=== PATIENT | female | born 1985 | race Caucasian/White ===

== ENCOUNTER → 2019-06-08 09:45 | Outpatient (CLI) | payer MEDICAID, SELFPAY | PROVIDERS: PCP Family Medicine; Referring Provider Family Medicine; Visit Provider Obstetrics & Gynecology | DX: Z36.2 Encounter for other antenatal screening follow-up (principal); O28.3 Abnormal ultrasonic finding on antenatal screening of mother; Z53.9 Procedure and treatment not carried out, unspecified reason ==

== ENCOUNTER → 2019-06-15 08:53 | Outpatient (CLI) | payer MEDICAID, SELFPAY ==
--- NOTE | 2019-06-15 08:55 | DI.US.S_ITS ---
PROCEDURE: US OB FOLLOW UP INDICATIONS: Gross monitoring, echogenic focus within the stomach OUTSIDE/PRIOR DATING DATA: Last menstrual period (LMP): 11/24/18. LMP-based estimated date of delivery (WILLIE): 08/31/19. First dating scan (date and location): 02/12/19, at [facility]. Estimated date of delivery (WILLIE) from first dating scan: 08/31/19. TECHNIQUE: Real-time scanning was performed of the fetus, with image documentation and biometric measurements. COMPARISON: Outside Facility, RG, US OB DETAILED SGL FETUS, 04/09/2019, 13:03. Outside Facility, RG, US OB FIRST TRIMESTER, 02/16/2019, 11:02. Outside Facility, RG, US OB FIRST TRIMESTER, 02/02/2019, 10:45. FINDINGS: General: A single living intrauterine gestation is present. Presentation: Cephalic. Placenta: Placental position is posterior, yet without previa. Amniotic fluid index: 13.4 cm, normal range is 5-24 cm. heart rate: 132 beats per minute. Maternal cervical canal: Not examined biometrics: Biparietal diameter: 7.5 cm equals 30 weeks 1 day Head circumference: 26.9 cm equals 29 weeks 2 days Abdominal circumference: 24.3 cm equals 28 weeks 4 days Femur length: 5.6 cm equals 29 weeks 3 days Estimated gestational age from initial scan: 28 weeks 5 days Composite gestational age from present scan: 29 weeks 3 days Estimated weight and percentile: 1325 g, 49th percentile Measurement variability for biometric dating: +/- 7 days from 14 weeks to 15 weeks 6 days gestation, +/- 10 days from 16 weeks to 21 weeks 6 days gestation, +/- 2 weeks from 22 weeks to 27 weeks 6 days gestation, +/- 3 weeks for 28 weeks gestation or later. weight reference: 4500 g or EFW >90/95% is considered macrosomia or large for gestational age. EFW <10% is small for gestational age. EFW 5% or less is considered intra-uterine growth restriction. Other: The previously seen gastric echogenic focus is not seen. IMPRESSION: The previously seen gastric echogenic focus is no longer seen there Normal interval growth when compared to the prior ultrasound examination. Dictated by: Umair Mai M.D. on 06/15/2019 at 11:29 Approved by: Umair Mai M.D. on 06/15/2019 at 11:33
== END ==
PROVIDERS: PCP Family Medicine; Referring Provider Obstetrics & Gynecology; Visit Provider Obstetrics & Gynecology
DX: O28.3 Abnormal ultrasonic finding on antenatal screening of mother (principal); Z3A.29 29 weeks gestation of pregnancy
CPT/HCPCS: 76816

== ENCOUNTER 2019-06-15 09:50 | Outpatient (CLI) | payer MEDICAID, SELFPAY ==
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
== END 2019-06-15 10:28 | disposition home or self-care (01) ==
LOC: OB 16:02
PROVIDERS: PCP Family Medicine; Referring Provider Obstetrics & Gynecology; Visit Provider Obstetrics & Gynecology
DX: O26.23 Pregnancy care for patient with recurrent pregnancy loss, third trimester (principal); O21.8 Other vomiting complicating pregnancy; Z86.2 Personal history of diseases of the blood and blood-forming organs and certain disorders involving the immune mechanism; Z3A.29 29 weeks gestation of pregnancy; O28.3 Abnormal ultrasonic finding on antenatal screening of mother
CPT/HCPCS: 59025; 76816; G0378; G0379

== ENCOUNTER → 2019-06-25 09:16 | Outpatient (CLI) | payer MEDICAID, SELFPAY ==
[2019-06-25 11:23] LABS: Add Manual Diff / Slide Review NO; Basophils Absolute Auto 0 /uL (0-100); Basophils Percent Auto 0.2 % (0-2); Eosinophils Absolute Auto 200 /uL (0-450); Eosinophils Percent Auto 2.6 % (2-4); Hematocrit 34.7 % (36-46); Hemoglobin 11.7 g/dL (12.0-16.0); Lymphocytes Absolute Auto 2100 /uL (1100-4500); Lymphocytes Percent Auto 26.6 % (25-40); Mean Corpuscular HGB Conc 33.8 % (30-36); Monocytes Absolute Auto 400 /uL (0-900); Monocytes Percent Auto 5.1 % (3-14); Neutrophils Absolute Auto 5200 /uL (1500-7000); Neutrophils Percent Auto 65.5 % (50-75); Platelet Count 284 X10^3/uL (150-400); Red Blood Cell Count 4.19 X10^6/uL (4.0-5.2); Red Cell Distribution Width 13.3 % (11.6-14.8)
[2019-06-25 11:33] LABS: Creatinine Urine Random 19.5 mg/dL; Protein (Total) Urine Random 15 mg/dL (0-12); Protein Creatinine Ratio Urine 0.76 GRAM/24H
[2019-06-25 11:36] LABS: Alanine Aminotransferase 12 IU/L (<35); Aspartate Aminotransferase 20 IU/L (14-36); Estimated Glomerular Filt Rate > 60.0 mL/min (>60); GTT (PREG) 1 Hour PP 50gm Dose 125 mg/dL (76-139)
[2019-06-25 11:43] LABS: BUN Creatinine Ratio 5.1 (6-22); Blood Urea Nitrogen 2 mg/dL (7-17)
[2019-06-25 11:52] LABS: Free T4, Direct Thyroxine 1.09 ng/dL (0.78-2.19)
== END ==
PROVIDERS: PCP Family Medicine; Referring Provider Obstetrics & Gynecology; Visit Provider Obstetrics & Gynecology
DX: Z34.83 Encounter for supervision of other normal pregnancy, third trimester (principal); Z3A.30 30 weeks gestation of pregnancy
CPT/HCPCS: 36415; 82565; 82570; 82950; 84156; 84439; 84443; 84450; 84460; 84520; 84550; 85025

== ENCOUNTER 2019-06-25 09:32 | Outpatient (CLI) | payer MEDICAID, SELFPAY | END 2019-06-25 10:15 | disposition home or self-care (01) | LOC: LABOR 09:52 → OB 06-29 14:22 | PROVIDERS: PCP Family Medicine; Referring Provider Obstetrics & Gynecology; Visit Provider Obstetrics & Gynecology | DX: O21.9 Vomiting of pregnancy, unspecified (principal); O26.23 Pregnancy care for patient with recurrent pregnancy loss, third trimester; Z3A.30 30 weeks gestation of pregnancy | CPT/HCPCS: 36415; 59025; 82565; 82570; 82950; 84156; 84439; 84443; 84450; 84460; 84520; 84550; 85025; G0378; G0379 ==

== ENCOUNTER 2019-07-03 10:13 | Outpatient (CLI) | payer OTHER, SELFPAY ==
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
== END 2019-07-03 10:32 | disposition home or self-care (01) ==
LOC: LABOR 10:30 → OB 07-06 09:34
PROVIDERS: PCP Family Medicine; Referring Provider Obstetrics & Gynecology; Visit Provider Obstetrics & Gynecology
DX: O21.8 Other vomiting complicating pregnancy (principal); O26.23 Pregnancy care for patient with recurrent pregnancy loss, third trimester; Z87.59 Personal history of other complications of pregnancy, childbirth and the puerperium; Z3A.31 31 weeks gestation of pregnancy
CPT/HCPCS: 59025; G0378; G0379

== ENCOUNTER 2019-07-10 11:34 | Outpatient (CLI) | payer OTHER, MEDICAID, SELFPAY ==
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
== END 2019-07-10 12:49 | disposition home or self-care (01) ==
LOC: LABOR 12:04 → OB 07-13 15:08
PROVIDERS: PCP Family Medicine; Referring Provider Obstetrics & Gynecology; Visit Provider Obstetrics & Gynecology
DX: O14.93 Unspecified pre-eclampsia, third trimester (principal); O26.23 Pregnancy care for patient with recurrent pregnancy loss, third trimester; O21.9 Vomiting of pregnancy, unspecified; Z3A.32 32 weeks gestation of pregnancy
CPT/HCPCS: 59025; G0378; G0379

== ENCOUNTER 2019-07-13 10:00 | Outpatient (CLI) | payer OTHER, MEDICAID, SELFPAY | END 2019-07-13 10:12 | disposition home or self-care (01) | LOC: OB 15:09 | PROVIDERS: PCP Family Medicine; Referring Provider Obstetrics & Gynecology; Visit Provider Obstetrics & Gynecology | DX: O14.93 Unspecified pre-eclampsia, third trimester (principal); O26.23 Pregnancy care for patient with recurrent pregnancy loss, third trimester; O21.9 Vomiting of pregnancy, unspecified; Z3A.33 33 weeks gestation of pregnancy | CPT/HCPCS: 59025; G0378; G0379 ==

== ENCOUNTER 2019-07-17 11:11 | Outpatient (CLI) | payer OTHER, MEDICAID, SELFPAY ==
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
== END 2019-07-17 11:50 | disposition home or self-care (01) ==
LOC: LABOR 12:10 → OB 07-21 11:36
PROVIDERS: PCP Family Medicine; Referring Provider Obstetrics & Gynecology; Visit Provider Obstetrics & Gynecology
DX: O21.9 Vomiting of pregnancy, unspecified (principal); O26.23 Pregnancy care for patient with recurrent pregnancy loss, third trimester; Z3A.33 33 weeks gestation of pregnancy
CPT/HCPCS: 59025; G0378; G0379

== ENCOUNTER 2019-07-21 14:12 | Outpatient (CLI) | payer OTHER, MEDICAID, SELFPAY | END 2019-07-21 15:20 | disposition home or self-care (01) | LOC: LABOR 14:28 → OB 07-22 12:29 | PROVIDERS: PCP Family Medicine; Referring Provider Obstetrics & Gynecology; Visit Provider Obstetrics & Gynecology | DX: O47.1 False labor at or after 37 completed weeks of gestation (principal); O21.9 Vomiting of pregnancy, unspecified; O26.23 Pregnancy care for patient with recurrent pregnancy loss, third trimester; Z3A.34 34 weeks gestation of pregnancy | CPT/HCPCS: 59025; G0378; G0379 ==

== ENCOUNTER 2019-07-24 01:23 | Observation (INO) | payer OTHER, MEDICAID, SELFPAY ==
[2019-07-24 02:47] LABS: Appearance Urine UA CLEAR; Bacteria Urine None Seen; Bilirubin Urine UA NEGATIVE (NEGATIVE); Color Urine UA YELLOW; Glucose Urine UA NEGATIVE (Negative); Ketones Urine UA 1+ (NEGATIVE); Leukocyte Esterase Urine UA NEGATIVE (NEGATIVE); Nitrite Urine UA NEGATIVE (Negative); Occult Blood Urine UA NEGATIVE (Negative); Protein Urine UA NEGATIVE (Negative); RBC Urine None Seen (0-5/HPF); Specific Gravity Urine UA 1.015 (1.000-1.035); Urobilinogen Urine UA 0.2 E.U./dL (0.2); WBC Urine None Seen (0-5/HPF)
[2019-07-24 02:58] LABS: Culture Indicated Urine Cult Not Indicated; Urine Comments Microscopic Normal; pH Urine UA 6.5 (4.5-8.0)
[2019-07-24 03:06] LABS: Protein (Total) Urine Random 14 mg/dL (0-12)
--- NOTE | 2019-07-24 08:33 | PM.OBTRLD ---
Visit Information Visit Information Date of evaluation: 07/24/19 Primary OB Provider: Evelyn Reddy On-call OB Provider: Trista Juarez Reason for Evaluation: Yes non-stress test non-stress test reason: decreased movement, Yes pre-term labor and Yes other Comments/Additional reasons for admission: Patient was seeing spots in front of her eyes Vital Signs Vital Signs: Blood pressure 114/70, pulse 76, PFSH Social History marital status: household members: spouse and children pets and animals: Yes (Dog) special santa needs: No Smoking Status: Former smoker Tobacco: How many years used: 2 second hand exposure: No alcohol intake: former substance use type: does not use Objective Labs Labs: Laboratory Results - last 24 hr 07/24/19 07/24/19 02:45 02:45 Urine Color Yellow Urine Appearance Clear Urine pH 6.5 Ur Specific [place] 1.015 Urine Protein Negative Urine Glucose (UA) Negative Urine Ketones 1+ H Urine Occult Blood Negative Urine Nitrate Negative Urine Bilirubin Negative Urine Urobilinogen 0.2 Ur Leukocyte Esterase Negative Urine RBC None seen Urine WBC None seen Urine Bacteria None seen Ur Culture Indicated? Cult not indicated Micro UA Comment Microscopic normal U Random Total Protein 14 H Evaluation Evaluation Baseline heart rate: 120 Variability: Moderate (11-25) monitor accelerations: Present monitor decelerations: Absent Uterine Contraction Intensity: Mild Category of Tracing: I Cervical dilation (cm): 0 Cervical effacement (%): 50 station: -3 Laboratory results: Laboratory Tests 07/24/19 07/24/19 02:45 02:45 Urine Color Yellow Urine Appearance Clear Urine pH 6.5 Ur Specific [place] 1.015 Urine Protein Negative Urine Glucose (UA) Negative Urine Ketones 1+ H Urine Occult Blood Negative Urine Nitrate Negative Urine Bilirubin Negative Urine Urobilinogen 0.2 Ur Leukocyte Esterase Negative Urine RBC None seen Urine WBC None seen Urine Bacteria None seen Ur Culture Indicated? Cult not indicated Micro UA Comment Microscopic normal U Random Total Protein 14 H Diagnosis, Plan/Disposition Final Diagnosis (1) 34 weeks gestation of : Current Visit: No Status: Acute (2) Decreased movement: Current Visit: No Status: Acute Plan/Disposition Plan: Patient is reassured the with reactive nonstress test, no evidence of pre term labor just uterine irritability, blood pressures are good with no further signs or symptoms of preeclampsia. OB Disposition: home
== END 2019-07-24 02:48 | disposition home or self-care (01) ==
PROVIDERS: Admitting Provider Specialist; PCP Family Medicine; Referring Provider Specialist; Visit Provider Specialist
DX: O47.03 False labor before 37 completed weeks of gestation, third trimester (principal); O21.9 Vomiting of pregnancy, unspecified; O26.23 Pregnancy care for patient with recurrent pregnancy loss, third trimester; O36.8130 Decreased fetal movements, third trimester, not applicable or unspecified; H53.8 Other visual disturbances; Z3A.34 34 weeks gestation of pregnancy
CPT/HCPCS: 59025; 59050; 81001; 84156; G0378; G0379

== ENCOUNTER 2019-07-24 12:50 | Observation (INO) | payer OTHER, MEDICAID, SELFPAY ==
[2019-07-24 13:47] LABS: Add Manual Diff / Slide Review NO; Basophils Absolute Auto 0 /uL (0-100); Basophils Percent Auto 0.3 % (0-2); Eosinophils Absolute Auto 100 /uL (0-450); Eosinophils Percent Auto 1.1 % (2-4); Hematocrit 32.4 % (36-46); Lymphocytes Absolute Auto 3100 /uL (1100-4500); Lymphocytes Percent Auto 30.3 % (25-40); Mean Corpuscular HGB Conc 34.1 % (30-36); Mean Corpuscular Hemoglobin 27.9 PG (26-34); Mean Corpuscular Volume 81.9 fL (80-100); Monocytes Absolute Auto 800 /uL (0-900); Monocytes Percent Auto 7.8 % (3-14); Neutrophils Absolute Auto 6200 /uL (1500-7000); Neutrophils Percent Auto 60.5 % (50-75); Platelet Count 271 X10^3/uL (150-400); Red Blood Cell Count 3.95 X10^6/uL (4.0-5.2); Red Cell Distribution Width 13.5 % (11.6-14.8); White Blood Cell Count 10.2 X10^3/uL (4.5-11.0)
[2019-07-24 14:03] LABS: Aspartate Aminotransferase 21 IU/L (14-36); BUN Creatinine Ratio 6.3 (6-22); Blood Urea Nitrogen 3 mg/dL (7-17); Estimated Glomerular Filt Rate > 60.0 mL/min (>60); Uric Acid 3.9 mg/dL (2.5-6.2)
[2019-07-24] MEDS: METOCLOPRAMIDE HCL 10 MG TABLET PO (15:23)
[2019-07-24] MEDS: ACETAMINOPHEN 325 MG TABLET 975 MG PO (15:24)
[2019-07-24 16:05] LABS: Creatinine Urine Random 91.2 mg/dL; Protein (Total) Urine Random 10 mg/dL (0-12)
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
== END 2019-07-24 16:00 | disposition home or self-care (01) ==
PROVIDERS: Admitting Provider Obstetrics & Gynecology; PCP Family Medicine; Referring Provider Obstetrics & Gynecology; Visit Provider Obstetrics & Gynecology
DX: O47.03 False labor before 37 completed weeks of gestation, third trimester (principal); O21.9 Vomiting of pregnancy, unspecified; O26.23 Pregnancy care for patient with recurrent pregnancy loss, third trimester; O36.8130 Decreased fetal movements, third trimester, not applicable or unspecified; H53.8 Other visual disturbances; Z87.59 Personal history of other complications of pregnancy, childbirth and the puerperium; Z3A.34 34 weeks gestation of pregnancy
CPT/HCPCS: 36415; 59025; 59050; 81001; 82570; 84156; 84450; 84550; 85025; G0378; G0379

== ENCOUNTER 2019-07-29 16:32 | Outpatient (CLI) | payer OTHER, MEDICAID, SELFPAY | END 2019-07-29 16:55 | disposition home or self-care (01) | LOC: LABOR 16:55 → OB 08-11 11:05 | PROVIDERS: PCP Family Medicine; Referring Provider Obstetrics & Gynecology; Visit Provider Obstetrics & Gynecology | DX: O26.23 Pregnancy care for patient with recurrent pregnancy loss, third trimester (principal); O21.9 Vomiting of pregnancy, unspecified; Z3A.35 35 weeks gestation of pregnancy | CPT/HCPCS: 59025; G0378; G0379 ==

== ENCOUNTER 2019-08-01 09:29 | Outpatient (CLI) | payer OTHER, MEDICAID, SELFPAY ==
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
== END 2019-08-01 10:10 | disposition home or self-care (01) ==
LOC: LABOR 09:44 → OB 08-04 07:40
PROVIDERS: PCP Family Medicine; Referring Provider Obstetrics & Gynecology; Visit Provider Obstetrics & Gynecology
DX: O26.23 Pregnancy care for patient with recurrent pregnancy loss, third trimester (principal); O21.9 Vomiting of pregnancy, unspecified; Z3A.35 35 weeks gestation of pregnancy
CPT/HCPCS: 59025; G0378; G0379; J3010

== ENCOUNTER 2019-08-04 11:14 | Outpatient (CLI) | payer OTHER, MEDICAID, SELFPAY ==
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
== END 2019-08-04 12:30 | disposition home or self-care (01) ==
LOC: LABOR 11:31 → OB 08-06 14:42
PROVIDERS: PCP Family Medicine; Referring Provider Obstetrics & Gynecology; Visit Provider Obstetrics & Gynecology
DX: O26.23 Pregnancy care for patient with recurrent pregnancy loss, third trimester (principal); O21.9 Vomiting of pregnancy, unspecified; Z3A.36 36 weeks gestation of pregnancy
CPT/HCPCS: 59025; G0378; G0379

== ENCOUNTER 2019-08-07 09:27 | Outpatient (CLI) | payer OTHER, MEDICAID, SELFPAY ==
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
== END 2019-08-07 10:15 | disposition home or self-care (01) ==
LOC: LABOR 10:11 → OB 08-10 14:05
PROVIDERS: PCP Family Medicine; Referring Provider Obstetrics & Gynecology; Visit Provider Obstetrics & Gynecology
DX: O26.23 Pregnancy care for patient with recurrent pregnancy loss, third trimester (principal); O21.9 Vomiting of pregnancy, unspecified; Z3A.36 36 weeks gestation of pregnancy
CPT/HCPCS: 59025; G0378; G0379

== ENCOUNTER → 2019-09-05 13:23 | Outpatient (CLI) | payer OTHER, MEDICAID, SELFPAY ==
--- NOTE | 2019-09-05 13:24 | DI.MRI.S_ITS ---
PROCEDURE: MR LUMBAR SPINE WO CON INDICATIONS: Low back pain TECHNIQUE: Noncontrast sagittal T1 spin echo and T2 fast echo, sagittal STIR, axial T1 and T2 fast spin echo through the lumbar spine. In cases with scoliosis, additional coronal T2 fast spin echo may be performed. COMPARISON: None. FINDINGS: Image quality: Excellent. Alignment and Curvature: There is normal bony alignment. Bone Marrow: Marrow is of normal overall signal. No acute vertebral body compression fractures. Spinal Cord: Conus medullaris terminates at the L1 level. Visualized cord demonstrates normal signal and size. Paraspinous Soft Tissues: No paravertebral masses. L1-L2: Normal appearance. L2-L3: Normal appearance. L3-L4: Normal appearance except for slight degenerative facet osteoarthritis. L4-L5: Normal appearance except for mild degenerative symmetric facet osteoarthritis without spinal or foraminal stenosis of significance.. L5-S1: The degenerative disc disease at this level is mild, with the posterior mild transverse disc bulge. Facet osteoarthritis is mild to moderate, slightly narrowing the neural foramen to the degree that there is potential for mild impingement on the normal course of the L5 nerve roots IMPRESSION: Bilaterally. No disc bulge or herniation of significance is found. There is a relatively mild degree of degenerative disc disease in this patient, at the lower lumbosacral spine as noted. However, facet osteoarthritis is also present and best seen at L5-S1, with potential for mild impingement on the normal course of the L5 nerve root bilaterally. Dictated by: Angel Lopez M.D. on 09/07/2019 at 12:31 Approved by: Angel Lopez M.D. on 09/07/2019 at 12:36
== END ==
PROVIDERS: PCP Family Medicine; Referring Provider Family Medicine; Visit Provider Family Medicine
DX: M54.5 Low back pain (principal); M51.37 Other intervertebral disc degeneration, lumbosacral region; M47.817 Spondylosis without myelopathy or radiculopathy, lumbosacral region; R20.0 Anesthesia of skin; R20.2 Paresthesia of skin
CPT/HCPCS: 72148

== ENCOUNTER → 2020-06-16 09:08 | Outpatient (CLI) | payer OTHER, MEDICAID, SELFPAY ==
[2020-06-16 19:25] LABS: Add Manual Diff / Slide Review NO; Basophils Absolute Auto 0 /uL (0-100); Basophils Percent Auto 0.3 % (0-2); Eosinophils Absolute Auto 300 /uL (0-450); Eosinophils Percent Auto 4.6 % (2-4); Hematocrit 38.8 % (36-46); Lymphocytes Absolute Auto 2500 /uL (1100-4500); Lymphocytes Percent Auto 36.4 % (25-40); Mean Corpuscular HGB Conc 33.5 % (30-36); Mean Corpuscular Hemoglobin 27.4 PG (26-34); Mean Corpuscular Volume 81.9 fL (80-100); Monocytes Absolute Auto 400 /uL (0-900); Monocytes Percent Auto 6.3 % (3-14); Neutrophils Absolute Auto 3700 /uL (1500-7000); Neutrophils Percent Auto 52.4 % (50-75); Platelet Count 293 X10^3/uL (150-400); Red Blood Cell Count 4.73 X10^6/uL (4.0-5.2); Red Cell Distribution Width 15.3 % (11.6-14.8)
[2020-06-16 19:41] LABS: Alanine Aminotransferase 23 IU/L (<35); Albumin 4.2 g/dL (3.5-5.0); Albumin Globulin Ratio 1.2 (1.0-2.8); Alkaline Phosphatase 116 U/L (38-126); Aspartate Aminotransferase 29 IU/L (14-36); BUN Creatinine Ratio 16.2 (6-22); Bilirubin Total 0.4 mg/dL (0.2-1.3); Blood Urea Nitrogen 12 mg/dL (7-17); Calcium 9.5 mg/dL (8.4-10.2); Carbon Dioxide 27 mmol/L (22-32); Chloride 104 mmol/L (98-107); Estimated Glomerular Filt Rate > 60.0 mL/min (>60); Globulin 3.4 g/dL (1.7-4.1); Glucose 105 mg/dL (70-100); HEMOLYSIS < 15 (0-50); Potassium 4.9 mmol/L (3.4-5.1); Sodium 139 mmol/L (137-145); Total Protein 7.6 g/dL (6.3-8.2)
[2020-06-16 19:52] LABS: Free T4, Direct Thyroxine 1.13 ng/dL (0.78-2.19)
== END ==
PROVIDERS: PCP Family Medicine; Visit Provider Family Medicine
DX: E05.00 Thyrotoxicosis with diffuse goiter without thyrotoxic crisis or storm (principal); E05.90 Thyrotoxicosis, unspecified without thyrotoxic crisis or storm; E03.9 Hypothyroidism, unspecified; D64.9 Anemia, unspecified
CPT/HCPCS: 80053; 84439; 85025

== ENCOUNTER → 2020-07-15 09:25 | Outpatient (CLI) | payer OTHER, MEDICAID, SELFPAY ==
--- NOTE | 2020-07-15 09:27 | DI.US.S_ITS ---
PROCEDURE: US THYROID INDICATIONS: HYPERTHYROIDISM TECHNIQUE: Real-time scanning was performed of the thyroid gland, with image documentation. COMPARISON: [facility], US, US ABDOMEN COMPLETE, 07/15/2020, 9:45. FINDINGS: Right: Thyroid lobe measures 8.1 x 3 x 2.1 cm, with a calculated volume of 26.7 cc. Left: Thyroid lobe measures 6.9 x 2.3 x 2 cm, with a calculated volume of 16.6 cc Isthmus: 8 mm thick. The thyroid demonstrates a mildly heterogeneous appearance throughout, yet without focal nodules. IMPRESSION: Enlarged thyroid, without focal nodules. Dictated by: Umair Mai M.D. on 07/15/2020 at 9:46 Approved by: Umair Mai M.D. on 07/15/2020 at 9:47
--- NOTE | 2020-07-15 09:27 | DI.US.S_ITS ---
PROCEDURE: US ABDOMEN COMPLETE INDICATIONS: EPIGASTRIC PAIN AND NAUSEA TECHNIQUE: Real-time scanning was performed of the abdominal and retroperitoneal organs, with image documentation. COMPARISON: [facility], US, US THYROID, 07/15/2020, 9:32. FINDINGS: Liver: The liver demonstrates normal size. The liver demonstrates generalized mildly increased echogenicity. This decreases ultrasound sensitivity for detection of hepatic masses. Gallbladder: Small gallstones/sludge can be seen, which are demonstrated to be mobile. The gallbladder wall is not thickened, measuring 3 mm or less. No specific pericholecystic fluid is seen. The sonographic Rodarte sign is negative. Biliary ducts: Intrahepatic bile ducts are non-dilated. Extrahepatic bile duct caliber measures 5 mm. Normal is 6-7 mm or less in diameter, or 10 mm or less post-cholecystectomy. Pancreas: Visualized portions of the pancreas are sonographically normal. Spleen: Spleen is normal in size and homogeneous in echotexture. Kidneys: Kidneys are normal in size and echotexture. Right kidney measures 10.2 cm long; left kidney measures 10.1 cm long. No hydronephrosis or nephrolithiasis. No solid masses. Aorta: Visualized aorta is normal in caliber at less than 3 cm. Iliacs: Proximal common iliac arteries are normal in caliber at less than 2.5 cm. IVC: Intrahepatic inferior vena cava is patent. Miscellaneous: No free abdominal fluid. IMPRESSION: Gallstones are seen, yet without additional sonographic signs of cholecystitis. Negative for biliary dilatation. Please correlate with physical examination findings, patient presentation, and laboratory values. The liver demonstrates mildly increased echogenicity. This finding is nonspecific, yet it is most commonly attributed to fatty infiltration. Dictated by: Umair Mai M.D. on 07/15/2020 at 9:48 Approved by: Umair Mai M.D. on 07/15/2020 at 9:49
== END ==
PROVIDERS: PCP Family Medicine; Referring Provider Family Medicine; Visit Provider Family Medicine
DX: K21.9 Gastro-esophageal reflux disease without esophagitis (principal); R10.13 Epigastric pain; R11.0 Nausea; E05.90 Thyrotoxicosis, unspecified without thyrotoxic crisis or storm; K80.20 Calculus of gallbladder without cholecystitis without obstruction
CPT/HCPCS: 76536; 76700

== ENCOUNTER → 2022-03-23 06:57 | Outpatient (CLI) | payer OTHER, MEDICAID, SELFPAY ==
[2022-03-23 20:04] LABS: COVID19 - ORCAS (NP or Nasal) Negative (Negative)
== END ==
PROVIDERS: PCP Family Medicine; Visit Provider Family Medicine
DX: Z20.822 Contact with and (suspected) exposure to COVID-19 (principal); Z01.812 Encounter for preprocedural laboratory examination
CPT/HCPCS: C9803; U0003